=== PATIENT | male | born 1990 | race Caucasian/White ===

== ENCOUNTER 2018-01-24 17:11 | Emergency (ER) | payer OTHER ==
[2018-01-24 17:16] VITALS: BP 142/92; PULSE 97; TEMP 97; BMI 24.4
--- NOTE | 2018-01-24 17:23 | PDOC ---
History of Present Illness - General Chief Complaint: Injury Stated Complaint: INJURY Time Seen by Provider: 01/24/18 17:17 History Source: Patient Exam Limitations: No Limitations - History of Present Illness Initial Comments: 01/24/18 17:22 27 yr male slip and fall on left elbow playing soccer. 01/24/18 17:46 Occurred: reports: just prior to arrival Severity: Yes: moderate Lower Extremity Pain Location: left: other (elbow) Method of Injury: Yes: fell Past History - Past Medical History Allergies/Adverse Reactions: Allergies Allergy/AdvReac Type Severity Reaction Status Date / Time No Known Allergies Allergy Verified 01/24/18 17:16 Home Medications: Ambulatory Orders NK [No Known Home Medication] 01/24/18 COPD: No - Suicide/Smoking/Psychosocial Hx Smoking History: Never smoked Number of Cigarettes Smoked Daily: 0 Hx Alcohol Use: No Drug/Substance Use Hx: No *Physical Exam - Vital Signs Last Vital Signs Temp Pulse Resp BP Pulse Ox 97 F L 97 H 18 142/92 99 01/24/18 17:13 01/24/18 17:13 01/24/18 17:13 01/24/18 17:13 01/24/18 17:13 - Physical Exam General Appearance: Yes: Nourished, Appropriately Dressed HEENT: positive: EOMI, HERBERT Musculoskeletal: positive: Normal Inspection Extremity: positive: Normal Capillary Refill, Tender (lateral left elbow to the posterior aspect) Integumentary: positive: Normal Color, Dry, Warm Neurologic: positive: Fully Oriented, Alert, Normal Mood/Affect, Normal Response , Motor Strength 5/5 Procedures - Splinting Splint Location: Left: Elbow Hand-Made Type: orthoglass Sling: Yes ED Treatment Course - RADIOLOGY Radiology Studies Ordered: Category Date Time Status ELBOW-LEFT [RAD] Stat Radiology 01/24/18 17:16 Ordered Medical Decision Making - Medical Decision Making 01/24/18 17:47 cc: left elbow injury playing soccer pain, swelling noted nv intact limited ROM due to pain motrin given xray shows anterior and posterior fat pad sign posterior elbow ortho glass splint placed with sling pt tolerated well dc inst given to mom and the girlfriend 01/27/18 08:32 *DC/Admit/Observation/Transfer Diagnosis at time of Disposition: Elbow fracture, left Qualifiers: Encounter type: initial encounter Fracture type: closed Qualified Code(s): S42.402A - Unspecified fracture of lower end of left humerus, initial encounter for closed fracture - Discharge Dispostion Disposition: HOME Condition at time of disposition: Good - Referrals Referrals: Jeancarlos Ji MD [Staff Physician] - - Patient Instructions Printed Discharge Instructions: DI for Elbow Fracture Additional Instructions: follow with or next week call Friday to follow up use sling durig the day remove to sleep do not remove the splint do not get wet take tylenol 650mg every 4-6hrs for pain or ibuprofen 800mg every 8hrs for pain - Post Discharge Activity
[2018-01-24] MEDS ORDERED: IBUPROFEN 400 MG TABLET (FP) PO ONE (17:27)
== END 2018-01-24 18:00 | disposition home or self-care (01) ==
LOC: JERFT 17:11
PROC: 2W39X1Z Immobilization of Left Upper Extremity using Splint (ICD-10-PCS; principal; 2018-01-24)
DX: S52.135A Nondisplaced fracture of neck of left radius, initial encounter for closed fracture (principal); W18.39XA Other fall on same level, initial encounter; Y93.66 Activity, soccer; Y92.322 Soccer field as the place of occurrence of the external cause; Y99.8 Other external cause status
CPT/HCPCS: 73070-TC-LT-FY; 99282-25